=== PATIENT | male | born 1940 | race Caucasian/White ===

== ENCOUNTER → 2017-02-18 | Day surgery (SDC) | payer MEDICARE ==
[~2017-02-18] VITALS: Ht 182.9 cm; Wt 82.0 kg
[~2017-02-18] MED LIST: ADVI200C5 PO; BUPIVACAINE HCL PF 0.5% 30 ML VIAL ONE; CEPH-459 PO; COMB0.2S EACH EYE; FAMOTIDINE 20 MG/2 ML VIAL ONE; HYDR-3288 PO; LACTATED RINGER'S 1000 ML INJ 1,000 ML ONE; LATA0.002 EACH EYE; LIDOCAINE HCL 2% 50 ML VIAL ONE; NEOMYCIN/POLYMYXIN 1 ML G.U. IRRIGANT IR ONE; PROPOFOL 200 MG/20 ML AMP IV ONE; RANI150T PO; SODIUM CHLORIDE 0.9% INJ 50 ML ONE; ceFAZolin INJ 1,000 MG VIAL ONE
[2017-02-18 09:05] VITALS: BP 149/92; PULSE 57; RESP 16; TEMP 97.5; O2SAT 96
[2017-02-18 09:34] LABS: HEMATOCRIT 42.4 % (39.0-51.0); MEAN CORPUSCULAR HEMOGLOBIN 32.9 PG (27.0-34.0); PLATELET COUNT 242 TH/MM3 (150-450); RED BLOOD COUNT 4.37 MIL/MM3 (4.50-5.90); RED CELL DISTRIBUTION WIDTH 13.1 % (11.6-17.2); REVIEW FLAG FINAL; WHITE BLOOD COUNT 6.5 TH/MM3 (4.0-11.0)
[2017-02-18 10:41] VITALS: TEMP 97.6
[2017-02-18 11:40] VITALS: BP 136/84; PULSE 41; RESP 14; O2SAT 98
--- NOTE | 2017-02-20 11:27 | EKG ---
Date Performed: 02/18/2017 Time Performed: 09:32:44 PTAGE: 76 years EKG: Sinus bradycardia with PAC(s). Poor R wave progression - probable normal variant Inferior a nd septal ST-T changes are nonspecific Borderline ECG PREVIOUS TRACING : 01/20/2010 16.35 DOCTOR: Hubert Brandon Interpretating Date/Time 02/20/2017 11:25:47
--- NOTE | 2017-02-21 22:04 | MP ---
cc: RUI ROBLES III, M.D. DATE OF SURGERY February 18, 2017 PREOPERATIVE DIAGNOSIS Right carpal tunnel syndrome. PROCEDURE Right open carpal tunnel release. SURGEON uRi Robles III, MD PROCEDURE The patient was brought to the operating room and placed on the operating table after the correct site of surgery were verified by members of each team room multiple times including the patient and myself and after adequate preoperative markings preoperative written consent were verified by everyone and after adequate preoperative time-out was performed to everyone's satisfaction and after adequate IV was achieved, the right upper extremity was prepped and draped in the traditional sterile surgical fashion. A 50/50 mixture of 2% plain lidocaine and 0.5% plain Marcaine was infiltrated into the skin and subcutaneous tissue. At the base of palm the limb was exsanguinated with an Osvaldo wrap, a highly placed well-padded axillary tourniquet was inflated to 200 mmHg for total 11 minutes. A longitudinally oriented incision within the skin creases at the base of the palm was made and carried down through skin and subcutaneous tissue. Blunt dissection was performed. Bipolar electrocautery was used as needed. The palmar fascia was retracted in opposite directions. The transverse carpal ligament was identified and divided in its entirety, in its midline from its proximal most to its distal-most extent under direct loupe visualization. This completely opened and decompressed the carpal tunnel which had a noticeable rebound. There was a hypertrophic tenosynovium. There were no mass effects or any other anatomic abnormalities identified. Thorough irrigation was performed with saline. The skin edges were then reapproximated using running 4-0 and nylon suture. The hand and arm were thoroughly cleansed and dried. Betadine and Adaptic dressings applied atop the wound followed by bulky soft dressing. Then the axillary tourniquet was released and the hand an all of the fingers became immediately soft, pink and warm and had brisk capillary refill of less than 2 seconds. The patient was awakened from anesthesia and transported to Post Anesthesia Care Unit, awake, in stable condition at the end of the case. Sponge, needle, instrument counts were correct at the case as reported by the nurse in the room. MD CATA Tirado III/MACKENZIE /10:47 AM /9:57 PM
== END | disposition home or self-care (01) ==
LOC: PHSDC 08:15
PROVIDERS: ATTEND Orthopaedic Surgery Hand Surgery
DX: G56.01 Carpal tunnel syndrome, right upper limb (principal); R94.31 Abnormal electrocardiogram [ECG] [EKG]
CPT/HCPCS: 01810; 36415; 64721; 85027; 93005; J0690; J3010; J7120